=== PATIENT | male | born 1935 | race Caucasian/White ===

== ENCOUNTER → 2021-02-03 10:33 | Outpatient (CLI) | payer MEDICARE, SELFPAY ==
--- NOTE | ~2021-02-03 | MR_ITS ---
EXAMINATION: MR lumbar spine wo con DATE: 02/03/2021 11:49 INDICATION: Dorsalgia, unspecified. TECHNIQUE: Magnetic resonance imaging (MRI) of the lumbar spine was performed without intravenous con trast. Sequences included sagittal T2-weighted FSE, sagittal T2-weighted FS FSE, sagittal T1-weighted FSE, and axial T2-weighted FSE. COMPARISON: None FINDINGS: There is 13 degrees dextroscoliosis of lumbar spine. There is 3 mm retrolisthesis of L1 on L2 and L2 on L3. Vertebral body heights are normal. There is moderately decreased disc height at L1-L 2, mildly decreased disc height at L2-L3, and moderately decreased disc height from L3-L4 through L5- S1 with endplate remodeling. The distal spinal cord signal intensity is normal. The conus medullaris is at L1. The following disc levels are specifically discussed: L1-L2: The disc is bulging and has an annular fissure. There is mild right and severe left facet join t osteoarthritis. There is mild right and moderate left neural foraminal stenosis. There is mild cent ral canal stenosis. L2-L3: The disc is bulging. There is mild bilateral facet joint osteoarthritis. There is moderate johnny ateral neural foraminal stenosis. There is mild central canal stenosis. There is moderate stenosis of left lateral recess. L3-L4: The disc is bulging and has an annular fissure. There is moderate bilateral facet joint osteoa rthritis. There is moderate bilateral neural foraminal stenosis. There is mild central canal stenosis . There is moderate stenosis of the lateral recesses. L4-L5: The disc is bulging and has an annular fissure. There is severe bilateral facet joint osteoart hritis. There is moderate bilateral neural foraminal stenosis. There is severe central canal stenosis . L5-S1: The disc is bulging. There is severe bilateral facet joint osteoarthritis. There is mild bilat eral neural foraminal stenosis. There is mild central canal stenosis. IMPRESSION: 1. Severe lumbar spondylosis. 2. Lumbar dextroscoliosis. Reviewed, dictated and finalized at location A.
== END ==
PROVIDERS: Visit Provider Family Medicine
DX: M54.9 Dorsalgia, unspecified (principal); G89.29 Other chronic pain; M47.816 Spondylosis without myelopathy or radiculopathy, lumbar region; M41.86 Other forms of scoliosis, lumbar region
CPT/HCPCS: 72148

== ENCOUNTER 2021-08-15 19:58 | Emergency (ER) | payer MEDICARE, SELFPAY ==
--- NOTE | ~2021-08-15 | CT_ITS ---
EXAMINATION: CT abdomen pelvis w con DATE: 08/15/2021 22:57 INDICATION: Generalized abdominal pain. TECHNIQUE: Computed tomography (CT) of the abdomen and pelvis was performed with 100 mL Omnipaque 350 intravenous contrast. Automated exposure control and iterative reconstruction technique were employe d. The dose-length product was 538.01 mGy-cm. COMPARISON: None. FINDINGS: The visualized portions of the lung bases demonstrate widespread peripheral septal thickeni ng with areas of calcification. There is mild bronchiectasis bilaterally. No honeycombing. The heart size is normal. There are coronary artery calcifications. No pericardial effusion. There are cysts in the liver measuring up to 6 mm. The gallbladder and spleen are normal. There is a 3.9 x 3.6 cm cysti c lesion in the uncinate process of the pancreas. The adrenal glands are normal. There are 2.0 cm and 1.6 cm masses in right kidney. There is a 10 mm mass in left kidney. There is mild right hydronephro sis and hydroureter. There is a 6 mm stone at right ureterovesicular junction. There are changes of p rostatectomy and pelvic lymph node dissection. There are no dilated loops of bowel. The appendix is n ormal. There are no pathologically enlarged lymph nodes. There is no free intraperitoneal fluid. Medi an sternotomy wires are noted. There is severe lumbar spondylosis. IMPRESSION: 1. 6 mm stone at right ureterovesicular junction with mild right hydronephrosis and hydroureter. 2. Bilateral kidney masses measuring up to 2.0 cm on the right suspicious for renal cell carcinoma. A bdomen MRI without and with contrast is recommended. 3. 3.9 cm cystic lesion in the uncinate process of the pancreas. The differential diagnosis includes pseudocyst, intraductal papillary mucinous neoplasm (IPMN), mucinous cystic neoplasm (MCN), serous cy stadenoma, and neuroendocrine tumor. 4. Chronic interstitial lung disease. Reviewed, dictated and finalized at location A. 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 6 mm stone at right ureterovesicular junction with mild right hydronephrosis and hydroureter. 2. Bilateral kidney masses measuring up to 2.0 cm on the right suspicious for r enal cell carcinoma. Abdomen MRI without and with contrast is recommended. 3. 3.9 cm cystic lesion in the uncinate process of the pancreas. The differenti al diagnosis includes pseudocyst, intraductal papillary mucinous neoplasm (IPMN ), mucinous cystic neoplasm (MCN), serous cystadenoma, and neuroendocrine tumor . 4. Chronic interstitial lung disease.
[2021-08-15 20:01] VITALS: BP 181/79; PULSE 55; RESP 16; TEMP 36.4; O2SAT 100
[2021-08-15 21:18] VITALS: BP 168/77; PULSE 58; RESP 20; O2SAT 100
[2021-08-15 21:35] LABS: Basophils Absolute Auto 0.1 K/mm3 (0.0-0.1); Basophils Percent Auto 0.7 % (0.2-1.2); Eosinophils Absolute Auto 0.1 K/mm3 (0-0.3); Eosinophils Percent Auto 1.6 % (0-4.4); Hematocrit 44.6 % (42.0-52.0); Hemoglobin 14.7 g/dL (14.0-18.0); Immature Granulocyte Absolute 0.03 K/mm3 (0.00-0.031); Immature Granulocyte Percent A 0.4 % (0-0.5); Lymphocytes Absolute Auto 2.21 K/mm3 (0.9-3.2); Lymphocytes Percent Auto 26.4 % (18.3-44.2); Mean Corpuscular Hemoglobin 31.8 pg (26-34); Mean Corpuscular Volume 96.5 fl (80-100); Mean Platelet Volume 9.6 fl (7.4-10.4); Monocytes Absolute Auto 0.7 K/mm3 (0.1-0.6); Monocytes Percent Auto 8.1 % (2.6-8.5); Neutrophils Absolute Auto 5.3 K/mm3 (1.3-6.7); Neutrophils Percent Auto 62.8 % (45.5-73.1); Platelet Count Result 168 k/mm3 (150-375); Red Blood Count 4.62 M/mm3 (4.6-6.20); Red Cell Distribution Width 12.7 % (11.5-14.5); White Blood Count 8.4 K/mm3 (4.5-10.0)
[2021-08-15 21:56] LABS: Add Urine Microscopic? YES; Appearance Urine Clear (Clear); Bilirubin Urine Negative (Negative); Blood Urine 2+ (Negative); Color Urine Yellow (Yellow); Glucose Urine UA Negative (Negative); Ketones Urine Negative (Negative); Leukocyte Esterase Ur Negative LEU/UL (Negative); Mucus Urine Rare /lpf; Nitrate Urine Negative (Negative); Protein Urine Negative (Negative); Specific Grav Ur 1.015 (1.001-1.035); Urobilinogen Urine Negative mg/dL (<2.0); WBC Urine 0-3 /hpf
--- NOTE | 2021-08-15 22:18 | ED.ABDPAIN ---
HPI - Abdominal Pain General Chief Complaint: Abdominal Pain Stated Complaint: ABD pain Time Seen by Provider: 08/15/21 21:54 Source: patient and RN notes reviewed Mode of arrival: ambulatory Limitations: no limitations History of Present Illness HPI narrative: This is an 86 year old male who presents for evaluation of diffuse abdominal pain. He states he started to feel unwell at 2 pm today , and he thought it was due to eating horseradish. He felt worse after eating a peanut butter and jelly sandwich at 6 pm. He developed severe diffuse abdominal pain at that time. He took Tums and Pepto Bismol for his discomfort. He states now his pain is much improved. His pain at its worst was 7/10 and it is now 2/10. He denies having nausea, vomiting, diarrhea or fever. He denies having similar pain in the past. Related Data Home Medications Medication Instructions Recorded Confirmed aspirin 81 mg tablet,delayed 81 mg PO DAILY 12/28/19 09/29/20 release vit cap PO 12/28/19 09/29/20 C,E,zinc,Qg-pndzf-4-lutein-zeaxanthin 250 mg-2.5 mg-0.5 mg capsule Allergies Allergy/AdvReac Type Severity Reaction Status Date / Time No Known Allergies Allergy Verified 08/15/21 21:19 Review of Systems Review of Systems: All systems reviewed & are unremarkable except as noted in HPI and below PMFSH Past Medical History Medical History CAD in [place] artery Chronic back pain Dyslipidemia Erectile dysfunction Essential (primary) hypertension History of basal cell cancer (~07/2019) Removed from nose by Dr Hoffman History of left heart catheterization (~11/16/10) History of prostate cancer HTN (hypertension) Hypercholesterolemia Hyperlipidemia Surgical History Surgical History History of facial surgery nose-2019 basal cell History of prostatectomy (~1997) 1997 History of tonsillectomy and adenoidectomy age 17 Hx of CABG 2010 Social History Social History Smoking status: Never smoker Second hand tobacco smoke exposure: No Alcohol intake: current Gender identity (if verbalized by the patient): Male Exam Const: General: no acute distress and alert Orientation/consciousness: patient oriented x3 Eyes: EOM: EOMs intact bilaterally Chest: Chest palpation & inspection: normal inspection of the chest Resp: Effort & Inspection: normal respiratory effort and no retractions Auscultation: clear to auscultation bilaterally Cardio: Rate: regular rate Rhythm: regular rhythm Heart sounds: no murmurs GI: GI Palp: Yes Soft to palpation, Yes Tenderness to palpation present (GI) (bilateral lower quadrant, mild), No Guarding due to palpation present (GI) and No Rigid due to palpation Auscultation: normal bowel sounds Skin: General skin exam: normal color Rashes: no rashes Neuro: General: patient oriented x3, moves all extremities and CN's II-XI intact bilaterally Psych: Mental Status: mental status grossly normal Affect: normal affect Course Reevaluation(s) Reevaluation #1: I reviewed CT with patient. I Discussed findings of right UVJ stone, bilateral renal masses, and pancreatitic mass. I discussed referred to urologist and he will need to see pcp. He understands importance of follow up given possibility of cancer. I also discussed when to return to ER. Date: 08/15/21 Time: 23:40 Vital Signs Vital signs: Vital Signs Temperature 97.6 F 08/15/21 20:01 Pulse Rate 55 L 08/15/21 20:01 Respiratory Rate 16 08/15/21 20:01 Blood Pressure 181/79 H 08/15/21 20:01 Pulse Oximetry 100 08/15/21 20:01 Temperature 97.6 F 08/15/21 20:01 Pulse Rate 81 08/15/21 23:34 Respiratory Rate 18 08/15/21 23:34 Blood Pressure 163/60 H 08/15/21 23:34 Pulse Oximetry 98 08/15/21 23:34 MDM - Abdominal Pain Lab Data Attestation: I revie
[2021-08-15 22:23] LABS: Alanine Aminotransferase 25 U/L (4-50); Albumin Level 4.6 g/dL (3.5-5.1); Alkaline Phosphatase 78 U/L (38-126); Anion Gap 10 mmol/L (8-16); Aspartate Amino Transferase 35 U/L (17-59); Bilirubin,Total 0.8 mg/dL (0.2-1.3); Blood Urea Nitrogen 21 mg/dL (9-20); Calcium 10.1 mg/dL (8.4-10.2); Carbon Dioxide 25 mmol/L (22-30); Chloride 103 mmol/L (98-107); Estimated CRCL calculation 42 ml/min; Estimated Glomerular Filt Rate 58; Glucose 95 mg/dL (65-110); Lipase 45 U/L (23-300); Potassium 4.7 mmol/L (3.4-5.0); Sodium 138 mmol/L (137-145)
[2021-08-15] MEDS: TAMSULOSIN HCL 0.4 MG CAPSULE PO (23:33)
[2021-08-15 23:34] VITALS: BP 163/60; PULSE 81; RESP 18; O2SAT 98
== END 2021-08-16 00:09 | disposition home or self-care (01) ==
PROVIDERS: Family Medicine; Emergency Provider General Practice; PCP Family Medicine
DX: N20.1 Calculus of ureter (principal); N28.89 Other specified disorders of kidney and ureter; K86.2 Cyst of pancreas; I25.10 Atherosclerotic heart disease of native coronary artery without angina pectoris; E78.5 Hyperlipidemia, unspecified; I10 Essential (primary) hypertension
CPT/HCPCS: 36415; 74177; 80053; 81001; 83690; 85025; 99284; A9270; Q9967

== ENCOUNTER 2021-08-23 11:23 | Outpatient (CLI) | payer MEDICARE, SELFPAY ==
--- NOTE | ~2021-08-23 | XR_ITS ---
XR abdomen/kub 1V 08/23/2021 11:49 Indication: Right ureteral stent Procedure: KUB Comparison: No prior studies for comparison. Findings: Bowel gas pattern is nonobstructive. There is calcification overlying the left kidney renal stone. There are surgical changes consistent with lymph node resection in the pelvis. Bowel gas gladis abraham is nonobstructive. Moderate lumbar spondylosis with dextroscoliosis. Impression: 1: Nonobstructive bowel gas pattern with moderate colonic fecal loading. 2: Possible left nephrolithiasis. Reviewed, dictated and finalized at location B. E LINING FINISHER ASBESTOS Impression: 1: Nonobstructive bowel gas pattern with moderate colonic fecal loading. 2: Possible left nephrolithiasis.
== END 2021-08-23 11:24 | disposition home or self-care (01) ==
LOC: ANHIMG 11:27
PROVIDERS: PCP Family Medicine; Visit Provider Urology
DX: N20.1 Calculus of ureter (principal)
CPT/HCPCS: 74018

== ENCOUNTER 2021-08-24 14:38 | Outpatient (CLI) | payer MEDICARE, SELFPAY ==
--- NOTE | ~2021-08-24 | CT_ITS ---
EXAMINATION: CT abdomen pelvis wo con DATE: 08/24/2021 14:56 INDICATION: Right ureteral stone TECHNIQUE: Computed tomography (CT) of the abdomen and pelvis was performed without intravenous contr ast. Automated exposure control and iterative reconstruction technique were employed. Exam dose: 219 .68 mGy-cm total exam DLP. COMPARISON: 08/23/2021 KUB 08/15/2021 CT abdomen pelvis with IV contrast material FINDINGS: Again noted is bilateral peripheral septal soft tissue thickening and calcifications. Normal heart size. No pericardial or pleural effusion. The gallbladder is present and appears unremarkable. No bile duct or pancreatic duct dilatation. No h epatic space-occupying mass lesion is noted other than is probable small right hepatic cyst. Normal s plenic size. Again noted is a 3.6 cm cystic lesion in the uncinate process of the pancreas. Normal morphology of the adrenal glands. Right renal 2.0 cm and 1.6 cm mass is and left renal 10 mm masses are demonstrated to better advantag e on the postcontrast 08/15/2021 CT abdomen pelvis examination. Since 08/15/2021 the 6 mm right ureterovesical junction calculus is no longer present and the hydroure teronephrosis has resolved. There is extensive calcification of the abdominal aorta but no aneurysm. Status post prostatectomy and bilateral pelvic lymph node dissection. There is no evidence of bowel obstruction or intraperitoneal free air. Small fat-containing umbilical hernia. Degenerative changes of the thoracic and lumbar spine. No suspicious osteolytic or osteoblastic lesio ns are noted.. IMPRESSION: Interval resolution of 6 mm right ureterovesical junction calculus and right hydroureter onephrosis since 08/15/2021 Bilateral renal masses; one or more hypernephromas are suspected Reviewed, dictated and finalized at Location A. Reviewed, dictated and finalized at location A. RNER IMPRESSION: Interval resolution of 6 mm right ureterovesical junction calculus and right hydroureteronephrosis since 08/15/2021 Bilateral renal masses; one or more hypernephromas are suspected
== END 2021-08-24 14:39 | disposition home or self-care (01) ==
LOC: ANHIMG 14:42
PROVIDERS: PCP Family Medicine; Visit Provider Urology
DX: N20.1 Calculus of ureter (principal)
CPT/HCPCS: 74176

== ENCOUNTER 2021-08-31 07:55 | Outpatient (CLI) | payer MEDICARE, SELFPAY ==
--- NOTE | ~2021-08-31 | MR_ITS ---
EXAMINATION: MR abdomen wo/w con DATE: 08/31/2021 09:27 INDICATION: Bilateral kidney masses. Other specified disorders of kidney and ureter. TECHNIQUE: Magnetic resonance imaging (MRI) of the abdomen was performed without and with 15 mL Multi Sharri intravenous contrast. Sequences included coronal T2-weighted FS FSE, coronal and axial FIESTA F S, coronal LAVA-flex, axial LAVA, axial T2-weighted FSE, axial T1-weighted dual-echo FSPGR, axial STI R FSE, and axial DWI. Postcontrast sequences included coronal LAVA-flex and a time course of axial LA VA. COMPARISON: CT abdomen and pelvis 08/24/2021, 08/15/21 FINDINGS: There are cysts in the liver measuring up to 6 mm. The gallbladder and spleen are normal. There is a 3.7 cm cystic lesion in the head of the pancreas. There is a 6 mm cystic lesion in the body of the pa ncreas. The adrenal glands are normal. There are cysts in the kidneys measuring up to 15 mm on the ri ght. There are 18 mm and 14 mm enhancing masses in right kidney. There is a 9 mm cystic lesion in lef t kidney with thick enhancing rim. There is an 8 mm enhancing lesion in left kidney upper pole with e nhancing rim. There are no dilated loops of bowel. There are no pathologically enlarged lymph nodes. There is no free intraperitoneal fluid. IMPRESSION: 1. 18 mm and 14 mm enhancing masses in right kidney, consistent with renal cell carcinoma. 2. 8 mm and 9 mm Bosniak type III cystic lesions of left kidney. 3. 3.7 cm and 6 mm cystic lesions in the pancreas. The differential diagnosis includes pseudocyst, in traductal papillary mucinous neoplasm (IPMN), mucinous cystic neoplasm (MCN), serous cystadenoma, and neuroendocrine tumor. Reviewed, dictated and finalized at location E. TION TECHNICIAN IMPRESSION: 1. 18 mm and 14 mm enhancing masses in right kidney, consistent with renal cell carcinoma. 2. 8 mm and 9 mm Bosniak type III cystic lesions of left kidney. 3. 3.7 cm and 6 mm cystic lesions in the pancreas. The differential diagnosis i ncludes pseudocyst, intraductal papillary mucinous neoplasm (IPMN), mucinous cy stic neoplasm (MCN), serous cystadenoma, and neuroendocrine tumor.
== END 2021-08-31 07:56 | disposition home or self-care (01) ==
PROVIDERS: PCP Family Medicine; Visit Provider Urology
DX: N28.89 Other specified disorders of kidney and ureter (principal); K86.2 Cyst of pancreas; N28.1 Cyst of kidney, acquired
CPT/HCPCS: 74183; A9577

== ENCOUNTER → 2021-11-14 13:19 | Outpatient (CLI) | payer MEDICARE, SELFPAY ==
--- NOTE | ~2021-11-14 | MR_ITS ---
EXAMINATION: MR abdomen wo/w con DATE: 11/14/2021 14:24 INDICATION: Renal mass TECHNIQUE: Magnetic resonance imaging (MRI) of the abdomen was performed without and with 15 mL Multi ted intravenous contrast. Sequences included coronal T2-weighted SS-FSE, coronal and axial FS 2D-F IESTA, axial STIR FSE, axial T2-weighted SS-FSE, axial T2-weighted FS SS-FSE, axial diffusion-weighte d SE, axial dual-echo T1-weighted FSPGR, and axial and coronal T1-weighted LAVA. Postcontrast axial T 1-weighted LAVA images were obtained in a time course. Postcontrast coronal T1-weighted LAVA images w ere obtained. COMPARISON: CT dated 08/16/2021 and MRI dated 08/31/2021 FINDINGS: Heart size is normal. No pericardial or pleural effusion. Metallic magnetic field artifact related to median sternotomy wires and intermediate soft tissue clips consistent with prior coronary artery byp ass grafting. A couple subcentimeter T2 hyperintense nonenhancing cysts in the right hepatic lobe are larger measuring 6 mm. There are at 3 small T2 hyperintense diverticula arising from the wall of the gallbladder likely representing Rokitansky-Aschoff sinuses which can be seen with adenomyomatosis or chronic cholecystitis.. Spleen and bilateral adrenal glands are normal. No interval change in a coup le mixed solid enhancing and cystic masses at the lower pole of the right kidney measuring 1.8 cm and 1.4 cm. Also unchanged are a pair of smaller cystic lesions in the left kidney with thick peripheral ly enhancing mobley measuring 9 mm the lower pole and 8 mm upper pole. 4.1 x 3.8 x 3.1 cm cystic lesio n with partial thin internal septations but without evident solid cortex enhancing component at the u ncinate process of the pancreas. Additional unchanged 7 mm nonenhancing T2 hyperintense cystic lesion at the body of the pancreas. No pathologically enlarged abdominal lymphadenopathy. Mild lumbar dextr ocurvature with moderate spondylosis. IMPRESSION: 1. No interval change in 1.8 and 1.4 cm enhancing right renal mass consistent with renal cell carcino ma. 2. No interval change in a 9 mm and 8 mm Bosniak type III cystic lesions at the left kidney. 3. No significant change in a couple cystic pancreatic lesions measuring 4.1 cm and 7 mm with differe ntial as previously detailed including pseudocyst, intraductal papillary mucinous neoplasm (IPMN), mu cinous cystic neoplasm (MCN), and the less common serous cystadenoma and neuroendocrine tumor. 4. A few Rokitansky-Aschoff sinuses of the gallbladder which can be seen with adenomyomatosis or steel estimator josh cholecystitis. Reviewed, dictated and finalized at location A. IMPRESSION: 1. No interval change in 1.8 and 1.4 cm enhancing right renal mass consistent w ith renal cell carcinoma. 2. No interval change in a 9 mm and 8 mm Bosniak type III cystic lesions at the left kidney. 3. No significant change in a couple cystic pancreatic lesions measuring 4.1 cm and 7 mm with differential as previously detailed including pseudocyst, intrad uctal papillary mucinous neoplasm (IPMN), mucinous cystic neoplasm (MCN), and t he less common serous cystadenoma and neuroendocrine tumor. 4. A few Rokitansky-Aschoff sinuses of the gallbladder which can be seen with a denomyomatosis or chronic cholecystitis.
[2021-11-14 13:47] LABS: Estimated Glomerular Filt Rate > 60
== END ==
PROVIDERS: PCP Family Medicine; Visit Provider Urology
DX: N28.89 Other specified disorders of kidney and ureter (principal)
CPT/HCPCS: 74183; A9577

== ENCOUNTER 2022-01-21 18:48 | Emergency (ER) | payer MEDICARE, SELFPAY ==
[2022-01-21 18:49] VITALS: BP 173/85; PULSE 96; RESP 18; TEMP 36.5; O2SAT 100
--- NOTE | 2022-01-21 19:10 | ED.GENADULT ---
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 Patient states he was operating a riding lawnmower when he stuck his left hand into the blades. Injury happened just prior to arrival. Patient did not bring any of the amputated fingertips. Patient is unsure of his last tetanus. Tetanus was updated on the respiratory. Patient was given a dose of Ancef. Baseline labs were collected. Related Data Home Medications Medication Instructions Recorded Confirmed aspirin 81 mg tablet,delayed 81 mg PO DAILY 12/28/19 10/31/21 release (Aspir-) vit cap PO 12/28/19 10/31/21 C,E,zinc,Gk-dujcp-7-lutein-zeaxanthin 250 mg-2.5 mg-0.5 mg capsule Allergies Allergy/AdvReac Type Severity Reaction Status Date / Time No Known Allergies Allergy Verified 01/21/22 19:43 Review of Systems Review of Systems: CONSTITUTIONAL: Denies fever, chills, or sweats. EYES: Denies visual changes, redness, or discharge. ENT: Denies rhinorrhea, congestion, sore throat, or otalgia. CARDIOVASCULAR: Denies chest pain, palpitations, or edema. RESPIRATORY: Denies cough or dyspnea. GASTROINTESTINAL: Denies abdominal pain, nausea, vomiting, or diarrhea. GENITOURINARY: Denies dysuria or hematuria. SKIN: Denies rash or itching. MUSCULOSKELETAL: Injury to left hand, see HPI NEUROLOGIC: Denies headache, numbness, or weakness. PSYCHIATRIC: Denies anxiety or depression. [facility] Past Medical History Medical History CAD in [place] artery Chronic back pain Dyslipidemia Erectile dysfunction Essential (primary) hypertension History of basal cell cancer (~07/2019) Removed from nose by Dr Hoffman History of left heart catheterization (~11/16/10) History of prostate cancer Hypercholesterolemia Surgical History Surgical History History of facial surgery nose-2019 basal cell History of lumbosacral spine surgery (~04/2021) History of prostatectomy (~1997) 1997 History of tonsillectomy and adenoidectomy age 17 Hx of CABG 2010 Social History Social History Second hand tobacco smoke exposure: No Alcohol intake: current Gender identity (if verbalized by the patient): Male Exam Narrative: APPEARANCE: Well appearing, no pain, no distress, well-nourished. HEAD: normocephalic, atraumatic. EYES: PERRLA/EOMI, conjunctivae clear. NOSE: Normal no drainage RESPIRATORY: Airway patent, respirations nonlabored. Clear to auscultation bilaterally, no rales, rhonchi, wheezing. CARDIOVASCULAR: Regular rate and rhythm without murmurs rubs or gallops. ABDOMINAL: Soft, nontender, nondistended, normal bowel sounds MUSCULOSKELETAL: Amputation of the distal aspects of the second third and fourth fingers on the left hand. NEURO: Alert. Cranial nerves II through XII intact. Grossly intact Course Course Emergency Course: No hand surgeon on-call at [facility]. Case was discussed with the hand surgeon at [facility]. Patient was accepted as a transfer and was accepted by the ER physician, Dr. Gan. Prior to transfer patient had wound dressed with wet-to-dry dressings, dose of Ancef was given. And patient's tetanus was updated. Vital Signs Vital signs: Vital Signs Temperature 97.7 F 01/21/22 18:49 Pulse Rate 96 01/21/22 18:49 Respiratory Rate 18 01/21/22 18:49 Blood Pressure 173/85 H 01/21/22 18:49 Pulse Oximetry 100 01/21/22 18:49 Oxygen Delivery Room Air 01/21/22 18:49 Temperature 97.7 F 01/21/22 18:49 Pulse Rate 51 L 01/21/22 20:23 Respiratory Rate 14 01/21/22 20:
[2022-01-21] MEDS: TETANUS,DIPHTHERIA,AC PERTUSSIS ADULT (0.5 ML) BOOSTRIX IM (19:12)
[2022-01-21 19:37] LABS: Basophils Absolute Auto 0.1 K/mm3 (0.0-0.1); Basophils Percent Auto 1.3 % (0.2-1.2); Eosinophils Absolute Auto 0.2 K/mm3 (0-0.3); Eosinophils Percent Auto 2.9 % (0-4.4); Hematocrit 38.7 % (42.0-52.0); Hemoglobin 12.8 g/dL (14.0-18.0); Immature Granulocyte Absolute 0.02 K/mm3 (0.00-0.031); Immature Granulocyte Percent A 0.3 % (0-0.5); Lymphocytes Absolute Auto 2.68 K/mm3 (0.9-3.2); Lymphocytes Percent Auto 42.9 % (18.3-44.2); Mean Corpuscular HGB Conc 33.1 g/dl (32-36); Mean Corpuscular Hemoglobin 31.8 pg (26-34); Mean Corpuscular Volume 96.3 fl (80-100); Mean Platelet Volume 8.8 fl (7.4-10.4); Monocytes Absolute Auto 0.5 K/mm3 (0.1-0.6); Monocytes Percent Auto 7.5 % (2.6-8.5); Neutrophils Absolute Auto 2.8 K/mm3 (1.3-6.7); Neutrophils Percent Auto 45.1 % (45.5-73.1); Platelet Count Result 151 k/mm3 (150-375); Red Blood Count 4.02 M/mm3 (4.6-6.20); Red Cell Distribution Width 12.9 % (11.5-14.5); White Blood Count 6.3 K/mm3 (4.5-10.0)
[2022-01-21 19:40] VITALS: BP 159/80; PULSE 55; RESP 16; O2SAT 99
[2022-01-21 19:47] LABS: Alanine Aminotransferase 24 U/L (6-50); Albumin Level 3.9 g/dL (3.5-5.1); Alkaline Phosphatase 58 U/L (38-126); Anion Gap 5 mmol/L (8-16); Aspartate Amino Transferase 28 U/L (17-59); Bilirubin,Total 0.4 mg/dL (0.2-1.3); Blood Urea Nitrogen 21 mg/dL (9-20); Calcium 8.8 mg/dL (8.4-10.2); Carbon Dioxide 25 mmol/L (22-30); Chloride 108 mmol/L (98-107); Estimated CRCL calculation 49 ml/min; Estimated Glomerular Filt Rate > 60; Glucose 114 mg/dL (65-110); Sodium 138 mmol/L (137-145)
[2022-01-21 19:49] LABS: INR 1.1; Prothrombin Time 13.5 Seconds (11.1-14.7)
--- NOTE | 2022-01-21 20:21 | PC.NURSE ---
Pt refused IV Dilaudid, stating narcotics make him nauseous. Pt reports the pain isnt that bad
[2022-01-21 20:23] VITALS: BP 159/76; PULSE 51; RESP 14; O2SAT 98
--- NOTE | 2022-01-21 20:43 | PC.NURSE ---
EMS arrived to transport pt.
== END 2022-01-21 20:43 | disposition short-term general hospital (02) ==
PROVIDERS: Emergency Provider Emergency Medicine; PCP Family Medicine
DX: S68.611A Complete traumatic transphalangeal amputation of left index finger, initial encounter (principal); S68.613A Complete traumatic transphalangeal amputation of left middle finger, initial encounter; S68.615A Complete traumatic transphalangeal amputation of left ring finger, initial encounter; Z23 Encounter for immunization; I25.10 Atherosclerotic heart disease of native coronary artery without angina pectoris; E78.5 Hyperlipidemia, unspecified; I10 Essential (primary) hypertension; Z85.828 Personal history of other malignant neoplasm of skin; Z85.46 Personal history of malignant neoplasm of prostate; Z90.79 Acquired absence of other genital organ(s); Z95.1 Presence of aortocoronary bypass graft; Z79.82 Long term (current) use of aspirin; W28.XXXA Contact with powered lawn mower, initial encounter
CPT/HCPCS: 36415; 80053; 85025; 85610; 85730; 90471; 90715; 96365; 96375; 99285; J0131; J0690

== ENCOUNTER 2022-05-27 14:13 | Outpatient (CLI) | payer MEDICARE, SELFPAY ==
[2022-05-27 18:56] LABS: Basophils Absolute Auto 0.1 K/mm3 (0.0-0.1); Basophils Percent Auto 1.1 % (0.2-1.2); Eosinophils Absolute Auto 0.2 K/mm3 (0-0.3); Eosinophils Percent Auto 2.5 % (0-4.4); Hematocrit 39.3 % (42.0-52.0); Hemoglobin 12.7 g/dL (14.0-18.0); Immature Granulocyte Absolute 0.02 K/mm3 (0.00-0.031); Immature Granulocyte Percent A 0.3 % (0-0.5); Lymphocytes Absolute Auto 2.63 K/mm3 (0.9-3.2); Lymphocytes Percent Auto 41.2 % (18.3-44.2); Mean Corpuscular HGB Conc 32.3 g/dl (32-36); Mean Corpuscular Hemoglobin 31.8 pg (26-34); Mean Corpuscular Volume 98.3 fl (80-100); Mean Platelet Volume 10.3 fl (7.4-10.4); Monocytes Absolute Auto 0.5 K/mm3 (0.1-0.6); Monocytes Percent Auto 8.1 % (2.6-8.5); Neutrophils Percent Auto 46.8 % (45.5-73.1); Platelet Count Result 171 k/mm3 (150-375); Red Cell Distribution Width 12.8 % (11.5-14.5); White Blood Count 6.4 K/mm3 (4.5-10.0)
[2022-05-27 19:18] LABS: Alanine Aminotransferase 21 U/L (6-50); Alkaline Phosphatase 55 U/L (38-126); Anion Gap 13 mmol/L (8-16); Aspartate Amino Transferase 24 U/L (17-59); Bilirubin,Total 0.7 mg/dL (0.2-1.3); Blood Urea Nitrogen 17 mg/dL (9-20); Calcium 8.8 mg/dL (8.4-10.2); Carbon Dioxide 26 mmol/L (22-30); Chloride 103 mmol/L (98-107); Estimated Glomerular Filt Rate > 60; Glucose 84 mg/dL (65-110); Sodium 142 mmol/L (137-145)
== END 2022-05-27 14:14 | disposition home or self-care (01) ==
LOC: ANHGOSHLAB 14:14
PROVIDERS: PCP Family Medicine; Visit Provider Family Medicine
DX: D64.9 Anemia, unspecified (principal); I10 Essential (primary) hypertension
CPT/HCPCS: 36415; 80053; 85025

== ENCOUNTER 2022-06-04 13:47 | Outpatient (CLI) | payer MEDICARE, SELFPAY ==
--- NOTE | ~2022-06-04 | XR_ITS ---
EXAM: XR abdomen/kub 1V DATE: 06/04/2022 14:09 HISTORY: RENAL MASS . COMPARISON: None available. FINDINGS: Multiple surgical clips overlie the pelvis. Borderline cecal dilation, by formed stool, ot herwise normal bowel gas pattern. No organomegaly. Stable left lower pole calcification. Lower lumbar degenerative disc disease. Degenerative changes in the bilateral SI joints and hips with moderate sc attered pelvic and hip enthesopathy. IMPRESSION: Borderline cecal dilation, correlate with symptoms of constipation. Left nephrolithiasis. No renal masses are not radiographically visible. Reviewed, dictated and finalized at location K. 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
== END 2022-06-04 13:48 | disposition home or self-care (01) ==
PROVIDERS: PCP Family Medicine; Visit Provider Urology
DX: N28.89 Other specified disorders of kidney and ureter (principal); N20.0 Calculus of kidney
CPT/HCPCS: 74018

== ENCOUNTER 2024-11-08 10:47 | Outpatient (CLI) | payer MEDICARE, SELFPAY ==
--- OUTSIDE RECORDS SUMMARY | 2024-11-08 12:13 | XMS_ITS | Clinical Summary ---
Author Organization [facility] [address] [facility] [address] Address [address] [place] [address] Care Team Providers Care Inside Parts Sales Name Role Phone Betty Romero MD Primary Care Provider Bairon HOBBS MD, Ryan Martin Unavailable Allergies No known active allergies Medications atorvastatin (LIPITOR) 80 mg tabletIndicatio ns:hyperlipidem ia Take 1 tablet (80 mg total) by mouth nightly Active vit C,K-Mg-skpld-julieth tein-zeaxan [id number] jv-kecx-xz-mg capsuleIndicati ons:eye health Take 1 capsule by mouth nightly Active aspirin 81 mg enteric coated tablet Take 1 tablet (81 mg total) by mouth daily Active Active Problems Problem Noted Date Diagnosed Date Impacted cerumen 04/10/2017 Coronary artery disease invo lving [place] de[place] coronary artery without angina pectoris 01/07/2017 Status post coronary artery bypass grafting 12/26 Essential hypertension, benign 01/07/2017 Perforation of nasal septum 03/25/2016 Encounters Date Type Department Care Team Description 08/13/2024 3:15 PM HUMAN SERVICE COORDINATOR Office Visit [facility] Cardiology [address] [place] [address] Krzysztof Blackwell MD Status post coronary artery bypass grafting (Primary Dx); Coronary artery disease involving [place] de[place] coronary artery of [place] heart without angina pectoris from Last 3 Months Surgical History Surgery Date Site/Laterality Comments CORONARY ARTERY BYPASS GRAFT SKIN CANCER EXCISION PROSTATECTOMY SPINE SURGERY Medical History Medical History Date Comments CAD (coronary artery disease) Cancer (HCC) skin, prostate Hyperlipidemia Kidney stone Family History Medical History Relation Name Comments Lung cancer Father Cervical cancer Mother Anesthesia problems Neg Hx Colon cancer Neg Hx Esophageal cancer Neg Hx Liver cancer Neg Hx Relation Name Status Comments Father (Age 77) Mother (Age 37) Social History Tobacco Use Types Packs/Day Years Used Date Smoking Tobacco: Never Smokeless Tobacco: Never Tobacco Cessation:Counseling Given: Not Answered Alcohol Use Standard Drinks/Week Comments Yes 2 (1 standard drink = 0.6 oz pur e alcohol) AUDIT-C Answer Date Recorded Q1: How often do you have a drink containing alc ohol? Never 09/17/2021 Average Number of Drinks Not on file 022 Q3: How often do you have si x or more drinks on one occasion? Never 09/17/2021 Sex and Gender Information Value Date Recorded Sex Assigned at Not on file Legal Sex Male 1:49 AM HUMAN SERVICE COORDINATOR Gender Identity Not on file Sexual Orientation Not on file Obstetrics History Last Filed Vital Signs Vital Sign Reading Time Taken Comments Blood Pressure 144/60 08/13/2024 3:06 PM HUMAN SERVICE COORDINATOR Pulse 54 08/13/2024 3:06 PM HUMAN SERVICE COORDINATOR Temperature 37 C (98.6 F) 11/25/2022 12:12 PM CDT Respiratory Rate 10 09/17/2021 1:25 PM HUMAN SERVICE COORDINATOR Oxygen Saturation 99% 08/13/2024 3:06 PM HUMAN SERVICE COORDINATOR Inhaled Oxygen Concentration - - Weight 83.4 kg (183 lb 12.8 oz) 08/13/2024 3:06 PM HUMAN SERVICE COORDINATOR Height 177.8 cm (5' 10 ) 08/13/2024 3:06 PM HUMAN SERVICE COORDINATOR Body Mass Index 26.37 08/13/2024 3:06 PM HUMAN SERVICE COORDINATOR Plan of Treatment Health Maintenance Due Date Last Done Comments Depression Screening 1937 Hepatitis B Screening 1955 Zoster Vaccine (1 of 2) 1987 Well Visit 65+ 2002 DTaP/Tdap/Td Vaccine (1 - Tdap) 11/11/2015 6, 07/15/2006 Pneumococcal vaccine 65+ (2 of 2 - PCV) 11/09/2016 11/10/2015, 11/18/2014, 07/15/2006 Fall Risk Assessment 09/17/2022 09/17/2021 Influenza Vaccine (#1) 2024 8, 04/18/2018, 06/02/[address] [facility] MEDICARE ADVANTAGE [employer] MEDICARE ADVANTAGE [facility] MEDICARE ADVANTAGE Advance Directives For more information, please contact: [phone] * Full Code (Latest Code Status on File) Date Activated Date Inactivated Comments 09/17/2021 10:42 AM 09/17/2021 5:38 PM Care Teams Inside Parts Sales Relationship Specialty Start Date End Date Betty Romero MD PCP - General Family Practice 05/11/18 [place] [id number] [address] Referring Physician Neurosurgery 03/19/21
--- OUTSIDE RECORDS SUMMARY | 2024-11-08 12:13 | XMS_ITS | Referral Summary ---
Author Organization [facility] [address] [facility] [address] Address [address] [place] [address] Care Team Providers Care Horticultural Technical Officer Name Role Phone Betty Romero MD Primary Care Provider Bairon HOBBS MD, Ryan Martin Unavailable Encounters Date Type Department Care Team Description 08/13/2024 3:15 PM DRY DIP WORKER Office Visit [facility] Cardiology [address] [place] [address] Krzysztof Blackwell MD Status post coronary artery bypass grafting (Primary Dx); Coronary artery disease involving [place] coronary artery of [place] heart without angina pectoris from Last 3 Months Allergies No known active allergies Medications atorvastatin (LIPITOR) 80 mg tabletIndicatio ns:hyperlipidem ia Take 1 tablet (80 mg total) by mouth nightly Active vit C,O-Pu-hnfof-julieth tein-zeaxan [id number] nt-dnqy-uk-mg capsuleIndicati ons:eye health Take 1 capsule by mouth nightly Active aspirin 81 mg enteric coated tablet Take 1 tablet (81 mg total) by mouth daily Active Active Problems Problem Noted Date Diagnosed Date Impacted cerumen 04/10/2017 Coronary artery disease invo lving [place] coronary artery without angina pectoris 01/07/2017 Status post coronary artery bypass grafting 12/26 Essential hypertension, benign 01/07/2017 Perforation of nasal septum 03/25/2016 Social History Tobacco Use Types Packs/Day Years [...] on file Legal Sex Male 1:49 AM DRY DIP WORKER Gender Identity Not on file Sexual Orientation Not on file Last Filed Vital Signs Vital Sign Reading Time Taken Comments Blood Pressure 144/60 08/13/2024 3:06 PM DRY DIP WORKER Pulse 54 08/13/2024 3:06 PM DRY DIP WORKER Temperature 37 C (98.6 F) 11/25/2022 12:12 PM CDT Respiratory Rate 10 09/17/2021 1:25 PM DRY DIP WORKER Oxygen Saturation 99% 08/13/2024 3:06 PM DRY DIP WORKER Inhaled Oxygen Concentration - - Weight 83.4 kg (183 lb 12.8 oz) 08/13/2024 3:06 PM DRY DIP WORKER Height 177.8 cm (5' 10 ) 08/13/2024 3:06 PM DRY DIP WORKER Body Mass Index 26.37 08/13/2024 3:06 PM DRY DIP WORKER Plan of Treatment Not on file Insurance [facility] MEDICARE ADVANTAGE [facility] Address[facility] [address] [address] [facility] MEDICARE ADVANTAGE [facility] MEDICARE Address: [address] [address] [facility] MEDICARE ADVANTAGE [facility] MEDICARE Address: [id number] [place] [address] Advance Directives For more information, please contact: [phone] * Full Code (Latest Code Status on File) Date Activated Date Inactivated Comments 09/17/2021 10:42 AM 09/17/2021 5:38 PM Care Teams Horticultural Technical Officer Relationship Specialty Start Date End Date Betty Romero MD PCP - General Family Practice 05/11/18 [place] [id number] [address] Referring Physician Neurosurgery 03/19/21
--- OUTSIDE RECORDS SUMMARY | 2024-11-08 12:13 | XMS_ITS | Encounter Summary ---
Author Organization [facility] Address [address] [place] [address] Care Team Providers Care Balancing Machine Set Up Worker Name Role Phone Betty Romero MD Primary Care Provider Encounter Details Date Type Department Care Team (Late st Contact Info) Description 06/25/2024 Refill [facility] - General Dermatology [address], [facility] [address] [place] [address] Uziel Reich MD [address] [facility] 3 DEPT OF DERMATOLOGY [place], [place] [id number] Social History Tobacco Use Types Packs/Day Years Used Date Smoking Tobacco: Never Smokeless Tobacco: Never Alcohol Use Standard Drinks/Week Comments No 0 (1 standard drink = 0.6 oz pur e alcohol) AUDIT-C Answer Date Recorded Q1: How often do you have a drink containing alcohol? Never 01/21/2022 Q2: How many drinks containi ng alcohol do you have on a typical day when you are drinking? Patient does not drink Q3: How often do you have si x or more drinks on one occasion? Never 01/21/2022 Sex and Gender Information Value Date Recorded Sex Assigned at Not on file Legal Sex Male 5:20 PM VISUAL COMMUNICATIONS INSTRUCTOR Gender Identity Not on file Sexual Orientation Not on file documented as of this encounter Miscellaneous Notes * Telephone Encounter - Colette Wren MD - 06/30/2024 12:45 PM VISUAL COMMUNICATIONS INSTRUCTOR Called patient regarding refill request. Discussed option of Efudex/calcipotriene combo BID x5 daysvs Efudex cream BID x3 weeks. Informed that 30g tube of Efudex/calcipotriene cream combo is $45. Ptagreeable to proceeding with combo cream. Rx sent to [facility]. Colette Wren MD [facility] Dermatology Resident, PGY4 (Covering for Dr. Hopson) [place] COMMUNICATIONS INSTRUCTOR * Telephone Encounter - Uziel Reich MD - 06/30/2024 11:36 AM CST Please find out why patient wants a refill. let patient know that he already finished treatment in the past. We treated precancer lesions with LN2 last visit. No need for Efudex. [place] COMMUNICATIONS INSTRUCTOR * Telephone Encounter - aYnet Dhillon - 06/30/2024 10:58 AM CST Patient requesting Efudex prescription sent to pharmacy. Ok to fill? Yanet Dhillon [place] COMMUNICATIONS INSTRUCTOR * Telephone Encounter - Prieto Serna - 06/25/2024 1:17 PM CST Pt calling to have dr call in medication to [facility] pharmacy [place] COMMUNICATIONS INSTRUCTOR documented in this encounter Plan of Treatment Upcoming Encounters Date Type Department Care Team (Late st Contact Info) Description 02/21/2025 2:10 PM CDT Office Visit [facility] - Dermatology [address] [place] [address], [facility] [place] [address] Uziel Reich MD [address] [place] [address] [address] [place] [address] documented as of this encounter Visit Diagnoses Diagnosis Actinic keratosis documented in this encounter Care Teams Balancing Machine Set Up Worker Relationship Specialty Start Date End Date Betty Romero MD [address] [place] [address] PCP - General 05/18/18 documented as of this encounter
--- OUTSIDE RECORDS SUMMARY | 2024-11-08 12:13 | XMS_ITS | Clinical Summary ---
Author Organization [facility] Address [address] [place] [address] Care Team Providers Care Gameplay Programmer Name Role Phone Betty Romero MD Primary Care Provider Source Comments [facility],non-owned Affiliates and Associated Physician Practices is amultiple site organization consisting of ambulatory clinics and hospital sitesin [place] and [place]. This disclosure is being madepursuant to the Care Everywhere program and may not contain all information available regarding this patient. Last updated 18.[facility] Allergies No known active allergies Medications * Be aware that medications may not be up to date on this document. Alwaysverify current medications with the patient. tadalafil (Cialis) 20 MG tablet Take 1 (one) tablet by mouth once daily as needed 6 Active atorvastatin (LIPITOR) 80 MG tablet Take 1 (one) tablet by mouth once daily Active Multiple Vitamins-Mineral s (PRESERVISION AREDS 2 PO) Take 1 tablet by mouth once daily Active aspirin EC (ECOTRIN) 81 MG tablet Take 1 (one) tablet by mouth once daily Active ciclopirox (Loprox) 1 % shampoo Apply to wet hair, leave on for 3 minutes, then rinse; three times weekly. 30 days supply 60 mL 11 3 Active Additional Information Patient not taking.Reported on 10/20/2023 fluorouracil (Efudex) 5 % creamIndications :Actinic keratosis Apply to affected area once daily for six weeks. 40 g 1 3 Active Additional Information Patient not taking.Reported on 10/20/2023 clindamycin (Cleocin) 1 % lotionIndication s:Neoplasm of uncertain behavior of skin Apply to affected area on right cheek daily. 30 day supply. 60 mL 2 4 Active Additional Information Patient not taking.Reported on 09/27/2024 clobetasol (Temovate) 0.05 % solutionIndicati ons:Other seborrheic dermatitis Apply to scalp twice daily as needed. 30 days supply. 50 mL 2 4 Active Additional Information Patient not taking.Reported on 09/27/2024 clobetasol propionate (Clobex) 0.05 % sprayIndications :Other psoriasis Apply to rash on scalp twice daily up to 3 weeks per month. 30 days supply. 59 mL 5 4 Active Additional Information Patient not taking.Reported on 09/27/2024 ketoconazole (Nizoral) 2 % shampooIndicatio ns:Other seborrheic dermatitis APPLY TO WET HAIR, LEAVE ON FOR 3 MINUTES, THEN RINSE AT LEAST THREE TIMES WEEKLY. 120 mL 5 4 Active Additional Information Patient not taking.Reported on 09/27/2024 OtherIndications :Actinic Keratosis Apply to affected areas twice daily for 5 days. Reasons: Actinic Keratosis 30 g 2 5 Active silver sulfADIAZINE (Silvadene) 1 % creamIndications :Rash and other nonspecific skin eruption Apply to affected area 2 times daily Apply to affected area on penis and scrotum 1-2 times daily 30 days supply 50 g 2 5 Active triamcinolone acetonide (Kenalog) 0.1 % creamIndications :Rash and other nonspecific skin eruption Apply to affected area on penis and scrotum twice daily. 30 days supply. 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 04/16/2021 Multiple benign melanocytic nevi of upper extremity, lower extremity, and trunk 04/16/2021 Lentigines 02/21/2020 History of basal cell carcinoma 02/21/2020 Personal history of malignant melanoma 0 History of squamous cell carcinoma in situ 12/01 Coronary artery disease invo lving [place] coronary artery without angina pectoris 01/07/2017 Essential hypertension, benign 01/07/2017 Status post coronary artery bypass grafting 12/26 Actinic keratosis 07/08/2016 Personal history of malignant melanoma of skin 1 09/08/2015 Other seborrheic keratosis 07/08/2016 Noble angioma 07/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 07/08/2016 Perforation of nasal septum 03/25/2016 Resolved Problems Problem Noted Date Diagnosed Date Resolved Date Open comedone 04/16/2021 10/01/2021 Impacted cerumen 04/10/2017 04/30/2021 Other specified follicular disorders 07/08/2016 10/01/2021 Nevus, non-neoplastic 07/08/20162021 Encounters Date Type Department Care Team Description 09/27/2024 10:20 AM DATA INTEGRITY SPECIALIST Office Visit [facility] - Dermatology [address] [place] [address] Uziel Reich MD History of melanoma (Primary Dx); Actinic keratosis; Rash and other nonspecific skin eruption; Lentigines; Seborrheic keratosis; Multiple benign melanocytic nevi of upper and lower extremities and trunk; History of nonmelanoma skin cancer 09/27/2024 Travel from Last 3 Months Immunizations Immunization Administration Dates Next Due INFLUENZA VACCINE 04/18/2018 Family History Medical History Relation Name Comments Cancer Father lung, colon Cancer - Skin, Melanoma Father Cancer Mother cervical Asthma Neg Hx CVA Neg Hx Cancer - Breast Neg Hx Cancer - Other Neg Hx Cancer - Skin, Non Melanoma Neg Hx Eczema Neg Hx Hemophilia Neg Hx Psoriasis Neg Hx Relation Name Status Comments Father Mother Social History Tobacco Use Types Packs/Day Years Used Date Smoking Tobacco: Never Smokeless Tobacco: Never Tobacco Cessation:Counseling Given: No Alcohol Use Standard Drinks/Week Comments No 0 [...] on file Legal Sex Male 5:20 PM DATA INTEGRITY SPECIALIST Gender Identity Not on file Sexual Orientation Not on file Last Filed Vital Signs Vital Sign Reading Time Taken Comments Blood Pressure 159/85 01/21/2022 9:33 PM CDT Pulse 54 01/21/2022 9:33 PM CDT Temperature 36.3 C (97.3 F) 01/21/2022 9:33 PM CDT Respiratory Rate 18 01/21/2022 9:33 PM CDT Oxygen Saturation 98% 01/21/2022 9:33 PM CDT Inhaled Oxygen Concentration - - Weight 79.4 kg (175 lb) 01/31/2022 10:01 AM CDT Height 175.3 cm (5' 9 ) 01/31/2022 10:01 AM CDT Body Mass Index 25.84 01/31/2022 10:01 AM CDT Plan of Treatment Upcoming Encounters Date Type Department Care Team (Late st Contact Info) Description 02/21/2025 2:10 PM CDT Office Visit [facility] - Dermatology [address] [place] [address], [place] [address] Uziel Reich MD [address] [place] [address] [address] [place] [address] Health Maintenance Due Date Last Done Comments DTAP/TDAP/TD VACCINES (1 - Tdap) 02[birth year]20/1954 PNEUMOCOCCAL VACCINE 50+ (1 of 1 - PCV) 1987 ZOSTER VACCINE (1 of 2) 1987 Respiratory Syncytial Virus (RSV) Vaccine Pt: or over 60 yrs (1 - 1-dose 75+ series) 02/20/2012 COVID-19 VACCINE (1 - 2023-2 5 season) 2024 DEPRESSION SCREENING 07/28/2024 MEDICARE AWV CALENDAR YEAR 2024 INFLUENZA VACCINE (Season Ended) 2025 04/18/20 18 HEPATITIS B VACCINE Aged Out No longe r eligible based on patient's age to complete this topic HIB VACCINE Aged Out No longer eligi ble based on patient's age to complete this topic HPV VACCINE Aged Out No longer eligi ble based on patient's age to complete this topic MENINGOCOCCAL (Group B) VACC INE SHARED DECISION-MAKING Aged Out No longer eligibl e based on patient's age to complete this topic MENINGOCOCCAL GROUPS A/C/Y/W VACCINE Aged Out No longer eligible b ased on patient's age to complete this topic Procedures Procedure Name Priority Date/Time Associated Diagnosis Comments CULTURE FUNGUS OTHER+FUNGUS SMEAR 10/06/2024 12:00 PM CDT CULTURE GENITAL Routine 09/30/2024 12:00 PM DATA INTEGRITY SPECIALIST Rash and other nonspecific skin eruption MI DESTROY PREMALIG LESION, 2-14 Routine 09/27/2024 4:59 PM DATA INTEGRITY SPECIALIST Actinic keratosis MI DESTROY PREMALIG LESION, 1ST LESION Routine 09/27/2024 4:59 PM DATA INTEGRITY SPECIALIST Actinic keratosis from Last 3 Months Results * (ABNORMAL) CULTURE FUNGUS OTHER+FUNGUS SMEAR (10/06/2024 12:00 PM CDT) Smear (A) [facility] Comment: CULTURE, FUNGUS W/SMEAR NOT HAIR, SKIN, BLOOD Micro Number: [id number] Test Status: Final Specimen Source: Penis Specimen Quality: Adequate Smear: No yeast seen Result: Light growth of Claudia albicans We received a specimen other than skin, hair, nail or blood with an order for a fungus culture, skin, hair, nails. Based upon the specimen submitted, the fungus culture, misc. was performed. If this is not what you intended to order, please contact your local client service and consulting manager immediately so that we can adjust our billing appropriately. You may also inquire about alternative or additional testing. NO COLLECTION DATE RECEIVED. WE HAVE USED THE DATE THE SPECIMEN WAS RECEIVED BY THIS LABORATORY THE COLLECTION DATE. IF THIS IS INCORRECT, PLEASE CONTACT CLIENT SERVICES. PHONE NUMBER: [phone] Test Performed at: [facility] [address] [place] [address] CHARISSE CRUZ MD 09/28/2024 3:2 5 AM DATA INTEGRITY SPECIALIST Uziel Reich MD LAB - MICROBIOLOGY ORDERABLES Final Result Performing Organization Address [facility] Co de Phone Number [facility] [address] [place] [address] * CULTURE GENITAL (09/30/2024 12:00 PM DATA INTEGRITY SPECIALIST) Culture [facility] Comment: CULTURE, GENITAL Micro Number: [id number] Test Status: Final Specimen Source: Penis Specimen Quality: Adequate Result: Growth of normal urogenital ana. NO COLLECTION DATE RECEIVED. WE HAVE USED THE DATE THE SPECIMEN WAS RECEIVED BY THIS LABORATORY THE COLLECTION DATE. IF THIS IS INCORRECT, PLEASE CONTACT CLIENT SERVICES. PHONE NUMBER: [phone] Test Performed at: [facility] [address] CHARISSE CRUZ MD Microbiology LESION OF PENIS / Unknown 09/28/2024 3:02 AM DATA INTEGRITY SPECIALIST Uziel Reich MD LAB - MICROBIOLOGY ORDERABLES Final Result Performing Organization Address [facility] de Phone Number [address] [address] * MI DESTROY PREMALIG LESION, 1ST LESION, MI DESTROY PREMALIG LESION, 2-14 (09/27/2024 4:59 PM DATA INTEGRITY SPECIALIST) Narrative Uziel Reich MD - 09/27/2024 4:59 PM DATA INTEGRITY SPECIALIST Samuel Jacinto MD 09/27/2024 5:00 PM Diagnosis and treatment options discussed, addressing the benefit and risks of each. Pt wish to proceed with cryotherapy. Liquid Nitrogen was applied to 9 lesions on (right forearm x 3, left forearm x 3, scalp x 2, upper back x 1) for 7-10s each. Number of cycles: 1. Wound care reviewed. Samuel Jacinto MD Dermatology Resident, PGY-3 Uziel Reich MD PROCEDURE/MINOR SURGICAL ORDE RABLES Final Result from Last 3 Months Insurance [facility] MANAGED MEDICARE ADV [facility] MANAGED MEDICARE ADV Care Teams Gameplay Programmer Relationship Specialty Start Date End Date Betty Romero MD [address] [place] [address] PCP - General 05/18/18
[2024-11-08 20:29] LABS: Alanine Aminotransferase 23 U/L (6-50); Albumin Level 4.1 g/dL (3.5-5.1); Alkaline Phosphatase 62 U/L (38-126); Anion Gap 7 mmol/L (4-12); Aspartate Amino Transferase 59 U/L (17-59); Bilirubin,Total 0.9 mg/dL (0.2-1.3); Blood Urea Nitrogen 19 mg/dL (9-20); Calcium 9.6 mg/dL (8.4-10.2); Carbon Dioxide 26 mmol/L (22-30); Chloride 107 mmol/L (98-107); Estimated Glomerular Filt Rate 60; Glucose 94 mg/dL (65-110); Potassium 4.4 mmol/L (3.4-5.0); Sodium 140 mmol/L (137-145)
[2024-11-08 22:03] LABS: Hemoglobin A1C 5.5 % (<5.7)
== END 2024-11-08 10:48 | disposition home or self-care (01) ==
LOC: ANHGOSHLAB 10:47
PROVIDERS: PCP Family Medicine; Visit Provider Family Medicine
DX: E78.5 Hyperlipidemia, unspecified (principal); I10 Essential (primary) hypertension; R73.03 Prediabetes
CPT/HCPCS: 36415; 80053; 83036

== ENCOUNTER 2025-02-04 15:44 | Outpatient (CLI) | payer MEDICARE, SELFPAY ==
--- NOTE | ~2025-02-04 | MR_ITS ---
MRI of the abdomen: Clinical indication: Renal mass. Technique: Coronal SSFSE ARC, WATER:coronal LAVA-FLEX, Coronal 2D FIESTA FatSat, Axial SSFSE BH ARC, Axial 3D DualEcho BH, Axial SSFSE-IR, Axial DWI b=500, Axial 2D FIESTA FatSat, pre and dynamic postco ntrast Axial LAVA ARC, postcontrast Coronal In and Opposed phase LAVA FLEX. Following intravenous adm inistration of 17 cc MultiHance gadolinium, T1-weighted fat-sat imaging was performed in the axial an d coronal planes. COMPARISON: 11/14/2021 Findings: Gallbladder is unremarkable. The common bile duct is normal in course and caliber. No filli ng defects are seen within the CBD. No evidence of intrahepatic biliary ductal dilatation. The pancre atic duct is normal in size. Bilateral renal cystic lesions are present with progressive peripheral enhancement, similar in overal l appearance to prior exam. Larger right renal lesion is mild increase in size from prior exam, curre ntly measuring 2.4 cm in diameter (previously 1.9 cm. Smaller lesion more posteriorly in the right ki dney is also increase in size, now measuring 1.8 cm in diameter (previously 1.3 cm. Peripherally enha ncing cystic left renal lesion is stable measuring 0.8 cm in diameter. Spleen and adrenal glands are unremarkable. A few small scattered subcentimeter hepatic cysts are pre sent. Cystic mass at the pancreatic head measures 3.7 x 3.6 cm, similar to prior exam given differenc es in patient positioning with a few thin internal septations or loculations. No pancreatic ductal di latation evident.. The aorta and the paraaortic regions appear normal. Impression: 2 separate complex, predominantly peripherally enhancing cystic lesions in the right kidney are mildl y increased in size since 2021. Please see details above. Low-grade/indolent renal cell carcinomas ve rsus other indolent masses are considerations. Essentially stable 3.7 x 3.6 cm cystic mass the pancreatic head/uncinate process. Reviewed, dictated and finalized at location M. Impression: 2 separate complex, predominantly peripherally enhancing cystic lesions in the right kidney are mildly increased in size since 2021. Please see details above. Low-grade/indolent renal cell carcinomas versus other indolent masses are cons iderations. Essentially stable 3.7 x 3.6 cm cystic mass the pancreatic head/uncinate proces s.
--- OUTSIDE RECORDS SUMMARY | 2025-02-04 15:52 | XMS_ITS | Clinical Summary ---
Author Organization [facility] Address [address] [place] [address] Care Team Providers Care Joint Terminal Attack Controller Name Role Phone Betty Romero MD Primary Care Provider Source Comments [facility],non-owned Affiliates and Associated Physician Practices is amultiple site organization consisting of ambulatory clinics and hospital sitesin [place], [place], [place] and [place]. This disclosure is being madepursuant to the Care Everywhere program and may not contain all information available regarding this patient. Last updated 18.[facility] Allergies No known active allergies Medications * [...] situ 12/01 Coronary artery disease invo lving [place] coronary artery without angina pectoris 01/07/2017 Essential [...] follicular disorders 07/08/2016 10/01/2021 Nevus, non-neoplastic 07/08/20162021 Immunizations Immunization Administration Dates Next Due INFLUENZA [...] on file Legal Sex Male 5:20 PM PASTRYCOOK'S ASSISTANT Gender Identity Not on file Sexual Orientation [...] 10:01 AM CDT Height 175.3 cm (5' 9) 01/31/2022 10:01 AM CDT Body Mass Index 25.84 01/31/2022 10:01 AM CDT Plan of Treatment Upcoming Encounters Date Type Department Care Team (Late st Contact Info) Description 02/21/2025 2:10 PM CDT Office Visit [facility] - Dermatology [address] [place] [address], [place] [address] Uziel Reich MD [address] [place] [address] [address] [place] [address] Health Maintenance Due Date Last Done Comments DTAP/TDAP/TD VACCINES (1 - Tdap) 02/20/1954 PNEUMOCOCCAL VACCINE 50+ (1 of 1 - PCV) 1987 ZOSTER VACCINE (1 of 2) 1987 Respiratory Syncytial Virus (RSV) Vaccine Pt: or over 60 yrs (1 - 1-dose 75+ series) 02/20/2012 COVID-19 VACCINE ( - 2023-2 5 season) 2024 DEPRESSION SCREENING [...] on patient's age to complete this topic Insurance [facility] MANAGED MEDICARE ADV [facility] MANAGED MEDICARE ADV Care Teams Joint Terminal Attack Controller Relationship Specialty Start Date End Date Betty Romero MD [address] [place] [address] PCP - General 05/18/18
--- OUTSIDE RECORDS SUMMARY | 2025-02-04 15:52 | XMS_ITS | Encounter Summary ---
Author Organization [facility] Address [address] [facility] [place] [address] Care Team Providers Care Occupational Analyst Name Role Phone Betty Romero MD Primary Care Provider Encounter Details Date Type Department Care Team (Late st Contact Info) Description 06/25/2024 Refill [facility] - General Dermatology [address], [facility] [address] [place] [address] Uziel Reich MD [address] [facility] 3 DEPT OF DERMATOLOGY [place], [place] [id number] Social History Tobacco Use Types Packs/Day Years [...] on file Legal Sex Male 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 Discussed option of Efudex/calcipotriene combo BID x5 daysvs Efudex cream BID x3 weeks. Informed that 30g tube of Efudex/calcipotriene cream combo is $45. Ptagreeable to proceeding with combo cream. Rx sent to [facility]. Colette Wren MD [facility] Dermatology Resident, PGY4 (Covering for Dr. Hopson) ICAL RESEARCH DIRECTOR * Telephone Encounter - Uziel Reich MD - 06/30/2024 11:36 AM CST Please find out why patient wants a refill. let patient know that he already finished treatment in the past. We treated precancer lesions with LN2 last visit. No need for Efudex. ICAL RESEARCH DIRECTOR * Telephone Encounter - Yanet Dhillon - 06/30/2024 10:58 AM CST Patient requesting Efudex prescription sent to pharmacy. Ok to fill? Yanet Dhillon ICAL RESEARCH DIRECTOR * Telephone Encounter - Prieto Serna - 06/25/2024 1:17 PM CST Pt calling to have dr call in medication to [facility] pharmacy ICAL RESEARCH DIRECTOR documented in this encounter Plan of Treatment Upcoming Encounters Date Type Department Care Team (Late st Contact Info) Description 02/21/2025 2:10 PM CDT Office Visit [facility] - Dermatology [address] [place] [address], [facility] [place] [address] Uziel Reich MD [address] [place] [address] 3 [place] [address] documented as of this encounter Visit Diagnoses Diagnosis Actinic keratosis documented in this encounter Care Teams Occupational Analyst Relationship Specialty Start Date End Date Betty Romero MD [address] [place] [address] PCP - General 05/18/18 documented as of this encounter
--- OUTSIDE RECORDS SUMMARY | 2025-02-04 15:52 | XMS_ITS | Clinical Summary ---
Author Organization [facility] [address] Address [address] [place] [address] Care Team Providers Care Stores Naval Name Role Phone Betty Romero MD Primary Care Provider Bairon HOBBS MD, Ryan Shoemaker Allergies No known active allergies Medications atorvastatin (LIPITOR) 80 mg tabletIndicatio ns:hyperlipidem ia Take 1 tablet (80 mg total) by mouth nightly Active vit C,A-Xh-oxndc-julieth tein-zeaxan 342-620-16-1 om-fwli-rb-mg capsuleIndicati ons:eye health Take 1 capsule by mouth nightly Active aspirin 81 mg enteric coated tablet Take 1 tablet (81 mg total) by mouth daily Active Active Problems Problem Noted Date Diagnosed Date Impacted cerumen 04/10/2017 Coronary artery disease invo lving [place] coronary artery without angina pectoris 01/07/2017 Status post coronary artery bypass grafting 12/26 Essential hypertension, benign 01/07/2017 Perforation of nasal septum 03/25/2016 Surgical History Surgery Date Site/Laterality Comments CORONARY [...] on file 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 Gender Identity Not on file Sexual Orientation Not on file Obstetrics History Last Filed Vital Signs Vital Sign Reading Time Taken Comments Blood Pressure 144/60 08/13/2024 3:06 PM ROPING TENDER Pulse 54 08/13/2024 3:06 PM ROPING TENDER Temperature 37 C (98.6 F) 11/25/2022 12:12 PM CDT Respiratory Rate 10 09/17/2021 1:25 PM ROPING TENDER Oxygen Saturation 99% 08/13/2024 3:06 PM ROPING TENDER Inhaled Oxygen Concentration - - Weight 83.4 kg (183 lb 12.8 oz) 08/13/2024 3:06 PM ROPING TENDER Height 177.8 cm (5' 10) 08/13/2024 3:06 PM ROPING TENDER Body Mass Index 26.37 08/13/2024 3:06 PM ROPING TENDER Plan of Treatment Health Maintenance Due Date Last Done Comments Depression Screening 1937 Hepatitis B Screening 1955 Zoster Vaccine (1 of 2) 1987 Well Visit 65+ 2002 DTaP/Tdap/Td Vaccine (1 - Tdap) 11/11/2015 6, 07/15/2006 Pneumococcal vaccine 65+ (2 of 2 - PCV) 11/09/2016 11/10/2015, 11/18/2014, 07/15/2006 Fall Risk Assessment 09/17/2022 09/17/2021 Influenza Vaccine (Season Ended) 2025 04/28/2018, 04/18/2018, 06/02/2017 Insurance [facility] [place] [id number] [facility] [employer] [place] [id number] [place] [id number] Advance Directives For more information, please contact: [phone] * Full Code (Latest Code Status on File) Date Activated Date Inactivated Comments 09/17/2021 10:42 AM 09/17/2021 5:38 PM Care Teams Stores Naval Relationship Specialty Start Date End Date Betty Romero MD PCP - General Family Practice 05/11/18 [place] [id number] [address] Referring Physician Neurosurgery 03/19/21
--- OUTSIDE RECORDS SUMMARY | 2025-02-04 15:52 | XMS_ITS | Referral Summary ---
Author Organization [facility] [address] Address [address] [place] [address] Care Team Providers Care Program Therapist Name Role Phone Betty Romero MD Primary Care Provider Bairon HOBBS MD, Ryan Shoemaker [phone] Allergies No known active allergies Medications atorvastatin (LIPITOR) 80 mg tabletIndicatio ns:hyperlipidem ia Take 1 tablet (80 mg total) by mouth nightly Active vit C,O-Uy-esdnl-julieth tein-zeaxan 507-532-76-1 ee-cewj-yb-mg capsuleIndicati ons:eye health Take 1 capsule by mouth nightly Active aspirin 81 mg enteric coated tablet Take 1 tablet (81 mg total) by mouth daily Active Active Problems Problem Noted Date Diagnosed Date Impacted cerumen 04/10/2017 Coronary artery disease invo lving [place] coronary artery without angina pectoris 01/07/2017 Status [...] on file 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 Gender Identity Not on file Sexual Orientation Not on file Last Filed Vital Signs Vital Sign Reading Time Taken Comments Blood Pressure 144/60 08/13/2024 3:06 PM ORTHOPAEDIC SURGEON Pulse 54 08/13/2024 3:06 PM ORTHOPAEDIC SURGEON Temperature 37 C (98.6 F) 11/25/2022 12:12 PM CDT Respiratory Rate 10 09/17/2021 1:25 PM ORTHOPAEDIC SURGEON Oxygen Saturation 99% 08/13/2024 3:06 PM ORTHOPAEDIC SURGEON Inhaled Oxygen Concentration - - Weight 83.4 kg (183 lb 12.8 oz) 08/13/2024 3:06 PM ORTHOPAEDIC SURGEON Height 177.8 cm (5' 10) 08/13/2024 3:06 PM ORTHOPAEDIC SURGEON Body Mass Index 26.37 08/13/2024 3:06 PM ORTHOPAEDIC SURGEON Plan of Treatment Not on file Insurance [facility] MEDICARE [facility]ANT[facility] MEDIC[facility] Address: [facility] [address] [place] [address] [facility] MEDICARE AD[facility]ANTAGE [facility] MEDICARE Address: [address] [address] [place] [address] [facility] MEDICARE AD[facility]AGE [facility] MEDICARE Address: [address] [address] [place] [address] Advance Directives For more information, please contact: [phone] * Full Code (Latest Code Status on File) Date Activated Date Inactivated Comments 09/17/2021 10:42 AM 09/17/2021 5:38 PM Care Teams Program Therapist Relationship Specialty Start Date End Date Betty Romero MD PCP - General Family Practice 05/11/18 [place] [id number] [address] Referring Physician Neurosurgery 03/19/21
== END 2025-02-04 15:45 | disposition home or self-care (01) ==
PROVIDERS: PCP Family Medicine; Visit Provider Urology
DX: N28.89 Other specified disorders of kidney and ureter (principal)
CPT/HCPCS: 74183; A9577

== ENCOUNTER 2025-06-02 09:59 | Outpatient (CLI) | payer MEDICARE, SELFPAY ==
[2025-06-02 13:01] LABS: Hematocrit 42.5 % (42.0-52.0); Hemoglobin 13.9 g/dL (14.0-18.0); Immature Granulocyte Percent A 0.2 % (0-0.5); Lymphocytes Absolute Auto 2.58 K/mm3 (0.9-3.2); Mean Corpuscular HGB Conc 32.7 g/dl (32-36); Mean Corpuscular Hemoglobin 32.3 pg (26-34); Mean Corpuscular Volume 98.6 fl (80-100); Nucleated Red Blood Cells Absolute Auto 0.000 K/mm3 (0.0-0.012); Nucleated Red Blood Cells Perc 0.0 % (0.0-0.2); Platelet Count Result 158 k/mm3 (150-375); Red Blood Count 4.31 M/mm3 (4.6-6.20); White Blood Count 6.2 K/mm3 (4.5-10.0)
[2025-06-02 13:10] LABS: Alanine Aminotransferase 21 U/L (6-50); Albumin Level 4.1 g/dL (3.5-5.1); Alkaline Phosphatase 56 U/L (38-126); Anion Gap 6 mmol/L (4-12); Aspartate Amino Transferase 62 U/L (17-59); Bilirubin,Total 0.9 mg/dL (0.2-1.3); Blood Urea Nitrogen 18 mg/dL (9-20); Calcium 9.3 mg/dL (8.4-10.2); Carbon Dioxide 27 mmol/L (22-30); Chloride 106 mmol/L (98-107); Cholesterol 128 mg/dL (0-200); Estimated Glomerular Filt Rate > 60; Glucose 103 mg/dL (65-110); HDL Direct 44 mg/dL; Potassium 5.1 mmol/L (3.4-5.0); Sodium 139 mmol/L (137-145); Total Protein 7.0 g/dL (6.3-8.2); Triglycerides 61 mg/dL (<150)
[2025-06-02 13:34] LABS: Thyroid Stimulating Hormone Reflex 1.260 uIU/mL (0.465-4.68)
[2025-06-02 14:27] LABS: Vitamin B12 626.0 pg/mL (239-931)
[2025-06-02 16:48] LABS: Hemoglobin A1C 5.5 % (<5.7)
--- OUTSIDE RECORDS SUMMARY | 2025-06-02 18:21 | XMS_ITS | Encounter Summary ---
Author Organization [facility] Address [address] [facility] [place] [address] Care Team Providers Care Academic Interventionist Name Role Phone Betty Romero MD Primary Care Provider Encounter Details Date Type Department Care Team (Late st Contact Info) Description 06/25/2024 Refill [facility] - General Dermatology [address], [facility] [address] [place] [address] Uziel Reich MD [address] [facility] 3 DEPT OF DERMATOLOGY [place], [place] [id number] Social History Tobacco Use Types Packs/Day Years [...] on file Legal Sex Male 5:20 PM DOCTOR OF RADIOLOGY Gender Identity Not on file Sexual Orientation Not on file documented as of this encounter Miscellaneous Notes * Telephone Encounter - Colette Wren MD - 06/30/2024 12:45 PM DOCTOR OF RADIOLOGY Called patient regarding refill request. Discussed option of Efudex/calcipotriene combo BID x5 daysvs Efudex cream BID x3 weeks. Informed that 30g tube of Efudex/calcipotriene cream combo is $45. Ptagreeable to proceeding with combo cream. Rx sent to [facility]. Colette Wren MD [facility] Dermatology Resident, PGY4 (Covering for Dr. Hopson) OR OF RADIOLOGY * Telephone Encounter - Uziel Reich MD - 06/30/2024 11:36 AM CST Please find out why patient wants a refill. let patient know that he already finished treatment in the past. We treated precancer lesions with LN2 last visit. No need for Efudex. OR OF RADIOLOGY * Telephone Encounter - Yanet Dhillon - 06/30/2024 10:58 AM CST Patient requesting Efudex prescription sent to pharmacy. Ok to fill? Yanet Dhillon OR OF RADIOLOGY * Telephone Encounter - Prieto Serna - 06/25/2024 1:17 PM CST Pt calling to have dr call in medication to [facility] pharmacy OR OF RADIOLOGY documented in this encounter Plan of Treatment Upcoming Encounters Date Type Department Care Team (Late st Contact Info) Description 10/03/2025 2:00 PM CDT Office Visit [facility] - Dermatology [address] [place] [address], [facility] [place] [address] Uziel Reich MD [address] [place] [address] [address] [place] [address] documented as of this encounter Visit Diagnoses Diagnosis Actinic keratosis documented in this encounter Care Teams Academic Interventionist Relationship Specialty Start Date End Date Betty Romero MD [address] [place] [address] PCP - General 05/18/18 documented as of this encounter
--- OUTSIDE RECORDS SUMMARY | 2025-06-02 18:21 | XMS_ITS | Clinical Summary ---
Author Organization [facility] Address [address] [facility] [address] [place] [address] Care Team Providers Care Member Services Representative Name Role Phone Betty Romero MD Primary Care Provider Source Comments [facility],non-owned Affiliates and Associated Physician Practices is amultiple site organization consisting of ambulatory clinics and hospital sitesin [place], [place], [place] and [place]. This disclosure is being madepursuant to the Care Everywhere program and may not contain all information available regarding this patient. Last updated 18.[facility] Allergies No known active allergies Medications * Be aware that medications may not be up to date on this document. Alwaysverify current medications with the patient. tadalafil (Cialis) 20 MG tablet Take 1 (one) tablet by mouth once daily as needed 04/11/20 16 Active atorvastatin (LIPITOR) 80 MG tablet Take 1 (one) tablet by mouth once daily Active Multiple Vitamins-Minera ls (PRESERVISION AREDS 2 PO) Take 1 tablet by mouth once daily Active aspirin EC (ECOTRIN) 81 MG tablet Take 1 (one) tablet by mouth once daily Active ciclopirox (Loprox) 1 % shampoo Apply to wet hair, leave on for 3 minutes, then rinse; three times weekly. 30 days supply 60 mL 11 04/21/20 23 Active fluorouracil (Efudex) 5 % creamIndication s:Actinic keratosis Apply to affected area once daily for six weeks. 40 g 04/21/20 23 Active Additional Information Patient not taking.Reported on 10/20/2023 clindamycin (Cleocin) 1 % lotionIndicatio ns:Neoplasm of uncertain behavior of skin Apply to affected area on right cheek daily. 30 day supply. 60 mL 2 10/20/19 24 Active Additional Information Patient not taking.Reported on 09/27/2024 clobetasol propionate (Clobex) 0.05 % sprayIndication s:Other psoriasis Apply to rash on scalp twice daily up to 3 weeks per month. 30 days supply. 59 mL 5 04/05/20 24 Active Additional Information Patient not taking.Reported on 09/27/2024 ketoconazole (Nizoral) 2 % shampooIndicati ons:Other seborrheic dermatitis APPLY TO WET HAIR, LEAVE ON FOR 3 MINUTES, THEN RINSE AT LEAST THREE TIMES WEEKLY. 120 mL 5 06/23/20 24 Active Additional Information Patient not taking.Reported on 09/27/2024 OtherIndication s:Actinic Keratosis Apply to affected areas twice daily for 5 days. Reasons: Actinic Keratosis 30 g 2 09/28/19 25 Active silver sulfADIAZINE (Silvadene) 1 % creamIndication s:Rash and other nonspecific skin eruption Apply to affected area 2 times daily Apply to affected area on penis and scrotum 1-2 times daily 30 days supply 50 g 2 09/28/19 25 Active triamcinolone acetonide (Kenalog) 0.1 % creamIndication s:Rash and other nonspecific skin eruption Apply to affected area on penis and scrotum twice daily. 30 days supply. 60 g 2 09/28/19 25 Active clobetasol (Temovate) 0.05 % solutionIndicat ions:Other seborrheic dermatitis APPLY TO SCALP TWICE DAILY NEEDED FOR 30 DAYS SUPPLY. 50 mL 2 05/27/20 25 Active clobetasol (Temovate) 0.05 % solutionIndicat ions:Other seborrheic dermatitis Apply to scalp twice daily as needed. 30 days supply. 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 04/16/2021 Multiple benign melanocytic nevi of upper extremity, lower extremity, and trunk 04/16/2021 Lentigines 02/21/2020 History of basal cell carcinoma 02/21/2020 Personal history of malignant melanoma 0 History of squamous cell carcinoma in situ 12/01 Coronary artery disease invo lving [place] coronary artery without angina pectoris 01/07/2017 Essential [...] Encounters Date Type Department Care Team Description 05/26/2025 Refill [facility] - Dermatology [address] [place] [address] Uziel Reich MD Refill Request 04/04/2025 1:30 PM CDT Office Visit [facility] - Dermatology [address] [place] [phone] Uziel Recih MD Actinic keratosis (Primary Dx); Irritant contact dermatitis due to other agents 04/04/2025 Travel 03/08/2025 Telephone [facility] - Centralized Scheduling [address] [place] [phone] Uziel Reich MD Medication Issue from Last 3 Months Immunizations Immunization Administration [...] on file 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 Gender Identity Not on file Sexual Orientation [...] Description 10/03/2025 2:00 PM CDT Office Visit [facility] - Dermatology [address] [place] [address], [place] [address] Uziel Reich MD [address] [place] [address] [address] [place] [address] Health Maintenance Due Date Last Done Comments DTAP/TDAP/TD VACCINES (1 - Tdap) 02[birth year]20/1954 PNEUMOCOCCAL VACCINE 50+ (1 of 1 - PCV) 1987 ZOSTER VACCINE (1 of 2) 1987 Respiratory Syncytial Virus (RSV) Vaccine Pt: or over 60 yrs (1 - 1-dose 75+ series) 02/20/2012 DEPRESSION SCREENING 07/28/2024 MEDICARE AWV CALENDAR YEAR 2024 COVID-19 VACCINE (1 - 2023-2 5 season) 2025 INFLUENZA VACCINE (#1) 2025 04/18/2018 HEPATITIS B VACCINE Aged Out No longe [...] Procedure Name Priority Date/Time Associated Diagnosis Comments MT DESTROY PREMALIG LESION, 2-14 Routine 04/04/2025 2:02 PM CDT Actinic keratosis MT DESTROY PREMALIG LESION, 1ST LESION Routine 04/04/2025 2:02 PM CDT Actinic keratosis from Last 3 Months Results * MT DESTROY PREMALIG LESION, 1ST LESION, MT DESTROY PREMALIG LESION, 2-14 (04/04/2025 2:02 PM CDT) Narrative Uziel Reich MD - 04/04/2025 2:02 PM CDT Uziel Reich MD 04/04/2025 2:20 PM Diagnosis and treatment options discussed. Cryotherapy (Liquid Nitrogen) to 3 lesions for 4-6 seconds each. Number of cycles: 1. Wound care reviewed. Anita Nguyen MD [facility] Dermatology Resident us Uziel Reich MD PROCEDURE/MINOR SURGICAL ORDE ADRIAN Final Result from Last 3 Months Insurance [facility] MANAGED MEDICARE ADV [facility] MEDICARE ADV Care Teams Member Services Representative Relationship Specialty Start Date End Date Betty Romero MD [address] [place] [address] PCP - General 05/18/18
--- OUTSIDE RECORDS SUMMARY | 2025-06-02 18:21 | XMS_ITS | Clinical Summary ---
Author Organization [facility] [address] Address [address] [place] [address] Care Team Providers Care Box Toe Buffer Name Role Phone Betty Romero MD Primary Care Provider Bairon HOBBS MD, Ryan Shoemaker [phone] Allergies No known active allergies Medications atorvastatin (LIPITOR) 80 mg tabletIndicatio ns:hyperlipidem ia Take 1 tablet (80 mg total) by mouth nightly Active vit C,X-Yu-giwqd-juileth tein-zeaxan [id number] jh-dkem-qr-mg capsuleIndicati ons:eye health Take 1 capsule by mouth nightly Active aspirin 81 mg enteric coated tablet Take 1 tablet (81 mg total) by mouth daily Active Active Problems Problem Noted Date Diagnosed Date Impacted cerumen 04/10/2017 Coronary artery disease 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 artery without angina pectoris 01/07/2017 Status [...] on file 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 Gender Identity Not on file Sexual Orientation Not on file Last Filed Vital Signs Vital Sign Reading Time Taken Comments Blood Pressure 144/60 08/13/2024 3:06 PM ARCHERY INSTRUCTOR Pulse 54 08/13/2024 3:06 PM ARCHERY INSTRUCTOR Temperature 37 C (98.6 F) 11/25/2022 12:12 PM CDT Respiratory Rate 10 09/17/2021 1:25 PM ARCHERY INSTRUCTOR Oxygen Saturation 99% 08/13/2024 3:06 PM ARCHERY INSTRUCTOR Inhaled Oxygen Concentration - - Weight 83.4 kg (183 lb 12.8 oz) 08/13/2024 3:06 PM ARCHERY INSTRUCTOR Height 177.8 cm (5' 10) 08/13/2024 3:06 PM ARCHERY INSTRUCTOR Body Mass Index 26.37 08/13/2024 3:06 PM ARCHERY INSTRUCTOR Plan of Treatment Health Maintenance Due Date Last Done Comments Depression Screening 1937 Hepatitis B Screening 1955 Zoster Vaccine (1 of 2) 1987 Well Visit 65+ 2002 DTaP/Tdap/Td Vaccine (1 - Tdap) 11/11/2015 6, 07/15/2006 Pneumococcal vaccine 65+ (2 of 2 - PCV) 11/09/2016 11/10/2015, 11/18/2014, 07/15/2006 Fall Risk Assessment 09/17/2022 09/17/2021 Influenza Vaccine (#1) 2025 8, 04/18/2018, 06/02/2017 Insurance [address] [id number] [facility] MEDICARE [facility]IC[facility] Address: [address] [place], [place] [phone] [facility] MEDICARE [facility] MEDICARE Address: [address] [address] [place] [address] [address] [id number] [facility] MEDICARE ADVANTAGE [place] [id number] Advance Directives For more information, please contact: [phone] * Full Code (Latest Code Status on File) Date Activated Date Inactivated Comments 09/17/2021 10:42 AM 09/17/2021 5:38 PM Care Teams Box Toe Buffer Relationship Specialty Start Date End Date Betty Romero MD PCP - General Family Practice 05/11/18 [place] [id number] [address] Referring Physician Neurosurgery 03/19/21
== END 2025-06-02 10:00 | disposition home or self-care (01) ==
PROVIDERS: PCP Family Medicine; Visit Provider Family Medicine
DX: E78.5 Hyperlipidemia, unspecified (principal); I10 Essential (primary) hypertension; R73.03 Prediabetes; E55.9 Vitamin D deficiency, unspecified; E53.8 Deficiency of other specified B group vitamins
CPT/HCPCS: 36415; 80053; 80061; 82306; 82607; 83036; 84443; 85025